=== PATIENT | male | born 1960 | race Caucasian/White ===

== ENCOUNTER 2019-10-13 05:42 | Day surgery (SDC) | payer OTHER ==
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
[~2019-10-13 05:42] MED LIST: Buffered Lidocaine 1% SYRIN* 1 ML/SYRINGE INTRADERM ONE
[2019-10-13] MEDS ORDERED: Dexamethasone IV* 4 MG/ML 1 ML (4 MG) IV SLOW PU ONE (06:00)
[2019-10-13] MEDS ORDERED: Famotidine IV* 10 MG/ML 2 ML (20 mg) IV ONE (06:00)
[2019-10-13] MEDS ORDERED: Lactated Ringers 1000 ML Bag* 1,000 ML IV SCH (06:00)
[2019-10-13] MEDS ORDERED: ceFAZolin 2 GM PREMIX in ORs 2 GM/50 ML BAG ONE (06:30)
[2019-10-13] MEDS ORDERED: Buffered Lidocaine 1% SYRIN* 1 ML/SYRINGE INTRADERM ONE (06:30)
[2019-10-13] MEDS ORDERED: Dexamethasone IV* 4 MG/ML 1 ML (4 MG) ONE (06:30)
[2019-10-13] MEDS ORDERED: Famotidine IV* 10 MG/ML 2 ML (20 mg) ONE (06:30)
[2019-10-13] MEDS ORDERED: fentaNYL* 50 MCG/ML 2 ML VIAL (100 MCG VIAL) ONE ×2 (07:03→10:02)
[2019-10-13] MEDS ORDERED: Midazolam* 1 MG/ML 5 ML VIAL (5 MG) ONE (07:03)
[2019-10-13] MEDS ORDERED: DiMENhydriNATE IV* 50 MG/ML VIAL IV PUSH PRN (07:11)
[2019-10-13] MEDS ORDERED: HYDROcodone/ACETAMIN 5-325 MG* 1 TAB PO PRN (07:11)
[2019-10-13] MEDS ORDERED: oxyCODONE/Acetamin 5/325 MG* TAB PO PRN (07:11)
[2019-10-13] MEDS ORDERED: fentaNYL* 50 MCG/ML 2 ML VIAL (100 MCG VIAL) IV PRN (07:11)
[2019-10-13] MEDS ORDERED: Naloxone* 0.4 MG/ML 1 ML VIAL IV PRN (07:11)
[2019-10-13] MEDS ORDERED: Bupivacaine 0.25% EPI 200,000* 30 ML SDV ONE (07:13)
[2019-10-13] MEDS ORDERED: Levalbuterol 0.63MG/3ML NEB* UNIT OF USE INH ONE ×2 (07:17→07:22)
[2019-10-13] MEDS ORDERED: Chloroprocaine 2%* 20 ML VIAL ONE (07:35)
[2019-10-13] MEDS ORDERED: Lidocaine 2% PF * 5 ML VIAL ONE (07:50)
[2019-10-13] MEDS ORDERED: Propofol* 10 MG/ML 20 ML BTL ONE (07:50)
[2019-10-13] MEDS ORDERED: Ketorolac INJ* 30 MG/ML 1 ML VIAL ONE (07:53)
[2019-10-13] MEDS ORDERED: hydrALAZINE IV* 20 MG/ML VIAL ONE (09:54)
[2019-10-13 10:21] VITALS: BP 155/99
--- NOTE | 2019-10-13 16:30 | OP ---
CC: Dr. Tobin, [facility] * DATE OF OPERATION: 10/13/19 - [facility] DATE OF : 60 SURGICAL CARE: Right knee. SURGEON: Micheal Haile MD NET WASHER: YOUSIF Stone, certified surgical tech/first assistant. ANESTHESIOLOGIST: Dr. Cal Kendall ANESTHESIA: Spinal with IV sedation. PRE-OP DIAGNOSIS: Right knee medial meniscal tear. POST-OP DIAGNOSES: Right knee medial meniscal tear, patellofemoral cartilage loss, chondromalacia. OPERATIVE PROCEDURE: Right knee partial medial meniscectomy and chondroplasty patellofemoral joint. COMPLICATIONS: There were no complications. DRAINS: There were no drains. TOURNIQUET: Tourniquet control was utilized on the right leg. CONDITION: Stable to recovery room. OPERATIVE INDICATIONS: Persistent knee pain especially medially with catching, MRI scan showing torn-up medial meniscus. DESCRIPTION OF PROCEDURE: The patient was brought to the operating room and placed on the operating room table in a supine position. Following the administration of spinal anesthetic done in the seated position, the patient was returned to the supine position. The right proximal thigh was wrapped with the tourniquet and the right leg was given a preliminary chlorhexidine prep and then a formal prep from the tourniquet to the foot. After prepping, draping, and sealing off, we did our universal protocol time-out confirming Enrico Gonzalez and a plan for right knee arthroscopic surgery, we all agreed and we proceeded. The knee had an effusion. The leg was exsanguinated with a Juanito tourniquet. Thigh tourniquet was elevated to 275. The knee was set up for arthroscopy with the arthroscope lateral to the patellar tendon. Probe and operating instruments medial to the patellar tendon and an in-flow catheter superomedial to the patella. The initial washout of the joint showed cartilaginous debris, one section was 1.5 cm in length x 2 to 3 mm in width and height and there was other debris within this as well and this all irrigated free quickly. The initial survey of the joint showed chondromalacia patella with fibrillations on the lateral facet of the patella. The trochlea had full- thickness cartilage loss over the area of 0.5 cm x 2 cm superior to inferior, slightly lateral and there was loose cartilage flap edges on this. There was a loose body in the intercondylar notch. The cruciate ligaments were in overall satisfactory condition. The lateral gutter was clear. The lateral femoral condyle, lateral meniscus, lateral tibial plateau in satisfactory condition. The medial femoral condyle had flaps of loose cartilage and the loose flaps were excised in the course of taking out the posterior horn of the medial meniscus. This was done with shaver and basket. The medial meniscus was torn in complex fashion mid to posterior from the level of the MCL posteriorly and the resection came somewhat anterior to medial meniscus. The resection was smooth on the anterior portion from the lateral portal. Great care was taken not to injure further the medial femoral condyle or to injure the medial tibial plateau during meniscectomy portion of the case. This was done with the knee on a valgus stress between 0 and 30 degrees of flexion with some external rotation of the foot. After the meniscectomy removal of loose bodies and the chondroplasty, then final photographs were obtained. The tourniquet was deflated. The knee was irrigated with another several liters of saline irrigation solution, then emptied, then instilled with Marcaine 0.25% with epinephrine 30 mL. The skin portals were closed with interrupted 3-0 Prolene and the knee was washed and dried, dressed with Betadine-soaked release, and then sterile gauze, sterile Webril, Cryo therapy cuff, and then ABD pads and a 6 inch Travis bandage loosely applied. The patient was returned to the recovery room in stable and satisfactory condition having tolerated the procedure very well. [id number]/[facility] #: [id number] JOANNE
== END 2019-10-13 10:36 | disposition home or self-care (01) ==
LOC: OR 05:42
PROVIDERS: ATTEND Orthopaedic Surgery
DX: S83.241A Other tear of medial meniscus, current injury, right knee, initial encounter (principal); M94.261 Chondromalacia, right knee; I10 Essential (primary) hypertension; Z87.891 Personal history of nicotine dependence; X58.XXXA Exposure to other specified factors, initial encounter; Y92.9 Unspecified place or not applicable
CPT/HCPCS: 88304; J0360; J0690; J1100; J1885; J2250; J2400; J2704; J3010

== ENCOUNTER 2023-08-26 09:26 | Inpatient (IN) ==
[2023-08-26 11:15] LABS: Hematocrit 35.7 % (38-53); Hemoglobin 11.6 g/dL (13.2-16.3); Mean Corpuscular Hemoglobin 27.6 pg (27-33); Mean Corpuscular Hgb Conc 32.5 g/dL (31-36); Mean Platelet Volume 8.9 fL (7.5-11.2); Platelet Count 188 10^3/uL (150-450); Red Blood Count 4.19 10^6/uL (4.06-5.63); Red Cell Distribution Width 16.4 % (12-17); White Blood Count 12.7 10^3/uL (3.6-10.2)
[2023-08-26 11:37] LABS: Albumin 3.3 g/dL (3.2-5.2); Albumin/Globulin Ratio 0.9 (1-3); Calcium 10.3 mg/dL (8.6-10.3); Creatinine, Serum 0.76 mg/dL (0.67-1.17); Globulin 3.7 g/dL (2-4); Potassium 4.5 mmol/L (3.5-5.0); Total Bilirubin 0.6 mg/dL (0.2-1.0)
[2023-08-26] MEDS ORDERED: Iohexol 350 (CONTRAST) 500 ML MDV IV ONE (12:14)
[2023-08-26] MEDS ORDERED: Vancomycin 1,000 MG in NS 0.9% 250 ml 250 ML IVPB ONE (14:45)
[2023-08-26] MEDS ORDERED: Albuterol/Ipratropium NEB.SOL (2.5/0.5 MG) 3 ML NEB.SOLN INH PRN (14:45)
[2023-08-26 14:59] LABS: C Reactive Protein 211.21 mg/L (<8.01)
[2023-08-26] MEDS ORDERED: Vancomycin per Pharmacy 1 EA NOTE FOLLOW UP SCH (15:00)
[2023-08-26] MEDS ORDERED: Vancomycin 1,500 MG in NS 0.9% 250 ml 250 ML IVPB ONE (15:00)
[2023-08-26] MEDS ORDERED: Senna TAB 8.6 mg TAB PO PRN (16:14)
[2023-08-26] MEDS ORDERED: Magnesium Hydroxide LIQ 30 ML UDC PO PRN (16:14)
[2023-08-26 16:30] LABS: RBC Morphology Normal (Normal)
[2023-08-26 16:31] LABS: ABS Basophils 0.1 10^3/uL (0.0-0.1); ABS Lymphocytes 1.2 10^3/uL (1.0-4.8); ABS Monocytes 1.4 10^3/uL (0.0-1.1); ABS Nucleated RBC 0.03 10^3/ul; Eosinophil % 0.2 %; Lymphocyte % 9.6 %; Nucleated Red Blood Cells % 0.2 %/100WBC (0.0-0.8)
[2023-08-26] MEDS ORDERED: Cefepime 2 GM in Dextrose 2 GM/50 ML BAG IV SCH (17:00)
[2023-08-26] MEDS: Lactated Ringers 1000 ml BAG 1,000 ML IV SCH (17:50)
[2023-08-26] MEDS: Enoxaparin 40 MG/0.4 ML SYR SUBCUT SCH (18:00)
[2023-08-26] MEDS: HYDROmorphone 1 MG/1 ML SYRINGE IV SLOW PU PRN (19:39)
[2023-08-26] MEDS: Magnesium Hydroxide LIQ 30 ML UDC PO SCH (20:57)
[2023-08-26] MEDS ORDERED: NS 0.9% 500 ml BAG 500 ML IV ONE (22:03)
[2023-08-26] MEDS: Morphine 2 MG/ML SYRINGE IV PRN (23:08)
[2023-08-27] MEDS: Lactated Ringers 1000 ml BAG 1,000 ML IV SCH (02:24)
[2023-08-27] MEDS: HYDROmorphone 1 MG/1 ML SYRINGE IV SLOW PU PRN ×3 (02:56→16:15)
[2023-08-27] MEDS: Cefepime 2 GM in Dextrose 2 GM/50 ML BAG IV SCH ×2 (04:34→16:09)
[2023-08-27] MEDS: Vancomycin 1,500 MG in NS 0.9% 250 ml 250 ML IVPB SCH ×2 (05:29→17:58)
[2023-08-27 05:59] LABS: Hematocrit 32.7 % (38-53); Hemoglobin 10.6 g/dL (13.2-16.3); Mean Corpuscular Hemoglobin 27.5 pg (27-33); Mean Corpuscular Hgb Conc 32.3 g/dL (31-36); Mean Platelet Volume 9.1 fL (7.5-11.2); Platelet Count 148 10^3/uL (150-450); Red Blood Count 3.85 10^6/uL (4.06-5.63); Red Cell Distribution Width 16.1 % (12-17); White Blood Count 11.5 10^3/uL (3.6-10.2)
[2023-08-27 06:25] LABS: Albumin 2.9 g/dL (3.2-5.2); Albumin/Globulin Ratio 0.9 (1-3); Calcium 9.6 mg/dL (8.6-10.3); Creatinine, Serum 0.54 mg/dL (0.67-1.17); Globulin 3.2 g/dL (2-4); Magnesium 1.9 mg/dL (1.9-2.7); Potassium 4.5 mmol/L (3.5-5.0); Total Bilirubin 0.6 mg/dL (0.2-1.0); Total Protein 6.1 g/dL (6.4-8.9)
[2023-08-27] MEDS: Magnesium Hydroxide LIQ 30 ML UDC PO SCH (07:31)
[2023-08-27] MEDS: Morphine 2 MG/ML SYRINGE IV PRN ×3 (07:31→22:05)
[2023-08-27] MEDS ORDERED: Sulfur Hexaflouride MICROSPHR 25 MG VIAL ONE (07:56)
[2023-08-27 09:12] LABS: ABS Basophils 0.1 10^3/uL (0.0-0.1); ABS Monocytes 1.1 10^3/uL (0.0-1.1); ABS Neutrophils 9.4 10^3/uL (1.5-7.6); ABS Nucleated RBC 0.01 10^3/ul; Eosinophil % 0.2 %; Lymphocyte % 8.6 %; Nucleated Red Blood Cells % 0.1 %/100WBC (0.0-0.8); RBC Morphology Normal (Normal)
[2023-08-27] MEDS: NS 0.9% 1000 ml BAG 1,000 ML IV SCH (13:24)
[2023-08-27 14:42] LABS: Uric Acid 4.1 mg/dL (4.4-7.6)
[2023-08-27] MEDS ORDERED: Ondansetron 4 mg VIAL 2 MG/ML 2 ml VIAL IV PRN (14:54)
[2023-08-27] MEDS: Enoxaparin 40 MG/0.4 ML SYR SUBCUT SCH (16:09)
[2023-08-28] MEDS: NS 0.9% 1000 ml BAG 1,000 ML IV SCH ×2 (00:46→17:03)
[2023-08-28] MEDS: HYDROmorphone 1 MG/1 ML SYRINGE IV SLOW PU PRN ×3 (02:02→12:44)
[2023-08-28] MEDS: Cefepime 2 GM in Dextrose 2 GM/50 ML BAG IV SCH ×2 (05:11→17:03)
[2023-08-28] MEDS ORDERED: Vancomycin Trough Check NOTE FOLLOW UP ONE (05:30)
[2023-08-28 05:46] LABS: Hematocrit 30.8 % (38-53); Hemoglobin 10.3 g/dL (13.2-16.3); Mean Corpuscular Hemoglobin 28.2 pg (27-33); Mean Corpuscular Hgb Conc 33.4 g/dL (31-36); Mean Corpuscular Volume 84.4 fL (80-97); Mean Platelet Volume 9.3 fL (7.5-11.2); Platelet Count 119 10^3/uL (150-450); Red Blood Count 3.65 10^6/uL (4.06-5.63); Red Cell Distribution Width 16.3 % (12-17); White Blood Count 10.3 10^3/uL (3.6-10.2)
[2023-08-28 06:03] LABS: Calcium 9.2 mg/dL (8.6-10.3); Creatinine, Serum 0.48 mg/dL (0.67-1.17)
[2023-08-28 06:29] LABS: ABS Basophils 0.1 10^3/uL (0.0-0.1); ABS Lymphocytes 0.9 10^3/uL (1.0-4.8); ABS Monocytes 0.8 10^3/uL (0.0-1.1); ABS Neutrophils 8.6 10^3/uL (1.5-7.6); ABS Nucleated RBC 0.02 10^3/ul; Eosinophil % 0.1 %; Lymphocyte % 8.4 %; Nucleated Red Blood Cells % 0.1 %/100WBC (0.0-0.8)
[2023-08-28] MEDS: Vancomycin 1,500 MG in NS 0.9% 250 ml 250 ML IVPB SCH (06:49)
[2023-08-28] MEDS: Morphine 2 MG/ML SYRINGE IV PRN (06:52)
[2023-08-28] MEDS ORDERED: NS 0.9% 500 ml BAG 500 ML IV ONE (07:29)
[2023-08-28] MEDS ORDERED: Morphine 2 MG/ML SYRINGE IV PRN (07:31)
[2023-08-28] MEDS ORDERED: Albuterol/Ipratropium NEB.SOL (2.5/0.5 MG) 3 ML NEB.SOLN INH ONE (08:02)
[2023-08-28] MEDS ORDERED: PALONOSETRON HCL 0.05 MG/ML (0.25 MG) SYRINGE (0.05 MG/ML) IV ONE (09:30)
[2023-08-28] MEDS ORDERED: Dexamethasone IV 4 MG/ML VIAL 1 ml VIAL IV SLOW PU SCH (09:30)
[2023-08-28] MEDS ORDERED: APREPITANT 130 MG in Premix IV 0 ML IV ONE (09:30)
[2023-08-28] MEDS ORDERED: ETOPOSIDE IVPB SCH (10:00)
[2023-08-28] MEDS ORDERED: NS 0.9% IVPB SCH (10:00)
[2023-08-28] MEDS ORDERED: Lorazepam PYXIS KEY PRN (10:58)
[2023-08-28] MEDS ORDERED: LORazepam 2 mg VIAL 1 ml IV PUSH PRN (10:58)
[2023-08-28] MEDS: Dexamethasone IV 4 MG/ML 5 ML VIAL (20 MG) IVPB SCH (12:17)
[2023-08-28] MEDS: NS 0.9% IVPB ONE ×2 (12:29→13:32)
[2023-08-28] MEDS: CARBOPLATIN IVPB ONE ×2 (12:29→13:32)
[2023-08-28] MEDS: ETOPOSIDE IVPB SCH (12:29)
[2023-08-28] MEDS: NS 0.9% IVPB SCH (12:29)
[2023-08-28] MEDS ORDERED: Prochlorperazine 5 mg/ml 2 ml VIAL (10 mg) IV PRN (14:52)
[2023-08-28] MEDS: Enoxaparin 40 MG/0.4 ML SYR SUBCUT SCH (17:02)
[2023-08-29] MEDS: Cefepime 2 GM in Dextrose 2 GM/50 ML BAG IV SCH ×2 (04:59→16:27)
[2023-08-29 05:46] LABS: Hematocrit 31.5 % (38-53); Hemoglobin 10.4 g/dL (13.2-16.3); Mean Corpuscular Hemoglobin 28.1 pg (27-33); Mean Corpuscular Hgb Conc 33.2 g/dL (31-36); Mean Corpuscular Volume 84.8 fL (80-97); Red Blood Count 3.71 10^6/uL (4.06-5.63); White Blood Count 9.9 10^3/uL (3.6-10.2)
[2023-08-29 05:59] LABS: Calcium 9.6 mg/dL (8.6-10.3); Creatinine, Serum 0.39 mg/dL (0.67-1.17); Potassium 4.2 mmol/L (3.5-5.0); Uric Acid 2.9 mg/dL (4.4-7.6); eGFR CKD-EPI 123.5 (>60)
[2023-08-29] MEDS: NS 0.9% 1000 ml BAG 1,000 ML IV SCH ×3 (06:02→23:03)
[2023-08-29 07:28] LABS: ABS Lymphocytes 0.5 10^3/uL (1.0-4.8); ABS Monocytes 0.6 10^3/uL (0.0-1.1); ABS Neutrophils 8.8 10^3/uL (1.5-7.6); ABS Nucleated RBC 0.01 10^3/ul; Lymphocyte % 5.3 %; Mean Platelet Volume 9.8 fL (7.5-11.2); Nucleated Red Blood Cells % 0.1 %/100WBC (0.0-0.8); Platelet Count 91 10^3/uL (150-450)
[2023-08-29] MEDS ORDERED: Morphine 2 MG/ML SYRINGE IV ONE (08:31)
[2023-08-29] MEDS ORDERED: Naloxone Nasal Spray 4 MG/0.1 ML NASAL.SPR INTRANASAL PRN (08:32)
[2023-08-29] MEDS ORDERED: Morphine 2 MG/ML SYRINGE IV PRN (08:32)
[2023-08-29] MEDS ORDERED: Acetaminophen IV 1 GM/100ML 1,000 MG/100 ML BAG IV PRN (08:33)
[2023-08-29] MEDS: HYDROmorphone 1 MG/1 ML SYRINGE IV SLOW PU PRN ×3 (11:04→21:40)
[2023-08-29] MEDS: Albuterol/Ipratropium NEB.SOL (2.5/0.5 MG) 3 ML NEB.SOLN INH SCH ×4 (11:10→23:17)
[2023-08-29] MEDS: Dexamethasone IV 4 MG/ML VIAL 1 ml VIAL IV SLOW PU SCH (13:02)
[2023-08-29] MEDS: Dexamethasone IV 4 MG/ML 5 ML VIAL (20 MG) IVPB SCH (13:21)
[2023-08-29] MEDS ORDERED: NS 0.9% 500 ml BAG 500 ML IV ONE (13:29)
[2023-08-29] MEDS: NS 0.9% IVPB SCH (13:42)
[2023-08-29] MEDS: ETOPOSIDE IVPB SCH (13:42)
[2023-08-29] MEDS: Enoxaparin 40 MG/0.4 ML SYR SUBCUT SCH (16:17)
[2023-08-30] MEDS: Albuterol/Ipratropium NEB.SOL (2.5/0.5 MG) 3 ML NEB.SOLN INH SCH ×4 (03:37→19:10)
[2023-08-30] MEDS: HYDROmorphone 1 MG/1 ML SYRINGE IV SLOW PU PRN ×3 (04:24→22:27)
[2023-08-30] MEDS: Cefepime 2 GM in Dextrose 2 GM/50 ML BAG IV SCH ×2 (04:43→17:01)
[2023-08-30 06:10] LABS: Hematocrit 28.2 % (38-53); Hemoglobin 9.2 g/dL (13.2-16.3); Mean Corpuscular Hemoglobin 28.1 pg (27-33); Mean Corpuscular Hgb Conc 32.6 g/dL (31-36); Mean Corpuscular Volume 86.2 fL (80-97); Platelet Count 84 10^3/uL (150-450); Red Blood Count 3.27 10^6/uL (4.06-5.63); Red Cell Distribution Width 16.1 % (12-17)
[2023-08-30 06:11] LABS: Calcium 8.8 mg/dL (8.6-10.3); Creatinine, Serum 0.49 mg/dL (0.67-1.17); Potassium 4.3 mmol/L (3.5-5.0); Uric Acid 2.8 mg/dL (4.4-7.6); eGFR CKD-EPI 115.3 (>60)
[2023-08-30] MEDS: NS 0.9% 1000 ml BAG 1,000 ML IV SCH (07:18)
[2023-08-30 07:57] LABS: Phosphorus 3.3 mg/dL (2.5-5.0)
[2023-08-30 08:23] LABS: ABS Lymphocytes 0.5 10^3/uL (1.0-4.8); ABS Monocytes 0.3 10^3/uL (0.0-1.1); ABS Neutrophils 11.2 10^3/uL (1.5-7.6); ABS Nucleated RBC 0.01 10^3/ul; Lymphocyte % 4.1 %; Nucleated Red Blood Cells % 0.1 %/100WBC (0.0-0.8)
[2023-08-30] MEDS ORDERED: HYDROmorphone 1 MG/1 ML SYRINGE IV SLOW PU PRN (08:59)
[2023-08-30] MEDS: Dexamethasone IV 4 MG/ML VIAL 1 ml VIAL IV SLOW PU SCH (12:33)
[2023-08-30] MEDS: NS 0.9% IVPB SCH (12:58)
[2023-08-30] MEDS: ETOPOSIDE IVPB SCH (12:58)
[2023-08-30] MEDS: Enoxaparin 40 MG/0.4 ML SYR SUBCUT SCH (17:05)
[2023-08-30] MEDS: CMCS:FLUTICAS/UMECLI/VILANT 100-62.5-25 MDI (NF) INH SCH (18:04)
[2023-08-30] MEDS ORDERED: Iodixanol (CONTRAST) 320 MG/ML 100 ML SDV IV ONE (21:21)
[2023-08-31] MEDS: HYDROmorphone 1 MG/1 ML SYRINGE IV SLOW PU PRN ×5 (03:10→18:56)
[2023-08-31] MEDS: Albuterol/Ipratropium NEB.SOL (2.5/0.5 MG) 3 ML NEB.SOLN INH SCH ×4 (03:12→19:07)
[2023-08-31] MEDS: Cefepime 2 GM in Dextrose 2 GM/50 ML BAG IV SCH ×2 (04:56→16:53)
[2023-08-31 06:16] LABS: Calcium 9.4 mg/dL (8.6-10.3); Creatinine, Serum 0.46 mg/dL (0.67-1.17); Potassium 4.4 mmol/L (3.5-5.0); eGFR CKD-EPI 117.5 (>60)
[2023-08-31 06:20] LABS: Phosphorus 3.3 mg/dL (2.5-5.0)
[2023-08-31 06:35] LABS: Uric Acid 2.9 mg/dL (4.4-7.6)
[2023-08-31 06:37] LABS: Hematocrit 28.5 % (38-53); Hemoglobin 9.4 g/dL (13.2-16.3); Mean Corpuscular Hemoglobin 28.4 pg (27-33); Mean Corpuscular Hgb Conc 33.2 g/dL (31-36); Mean Corpuscular Volume 85.6 fL (80-97); Mean Platelet Volume 10.2 fL (7.5-11.2); Platelet Count 71 10^3/uL (150-450); Red Blood Count 3.33 10^6/uL (4.06-5.63); Red Cell Distribution Width 16.3 % (12-17); White Blood Count 9.4 10^3/uL (3.6-10.2)
[2023-08-31 06:39] LABS: ABS Lymphocytes 0.5 10^3/uL (1.0-4.8); ABS Monocytes 0.2 10^3/uL (0.0-1.1); ABS Neutrophils 8.7 10^3/uL (1.5-7.6); ABS Nucleated RBC 0.01 10^3/ul; Lymphocyte % 4.8 %; Nucleated Red Blood Cells % 0.1 %/100WBC (0.0-0.8); RBC Morphology Normal (Normal)
[2023-08-31] MEDS: CMCS:FLUTICAS/UMECLI/VILANT 100-62.5-25 MDI (NF) INH SCH (07:17)
[2023-08-31 15:39] LABS: Albumin/Globulin Ratio 1.1 (1-3); Direct Bilirubin 0.1 mg/dL (0.03-0.18); Globulin 2.8 g/dL (2-4); Indirect Bilirubin 0.4 mg/dL (0.3-1.0); Total Bilirubin 0.5 mg/dL (0.2-1.0); Total Protein 5.8 g/dL (6.4-8.9)
[2023-08-31] MEDS: Enoxaparin 40 MG/0.4 ML SYR SUBCUT SCH (16:53)
[2023-09-01] MEDS: Albuterol/Ipratropium NEB.SOL (2.5/0.5 MG) 3 ML NEB.SOLN INH SCH ×2 (01:07→08:11)
[2023-09-01] MEDS: HYDROmorphone 1 MG/1 ML SYRINGE IV SLOW PU PRN ×3 (01:08→17:00)
[2023-09-01] MEDS: Cefepime 2 GM in Dextrose 2 GM/50 ML BAG IV SCH ×2 (04:49→16:06)
[2023-09-01 06:32] LABS: ABS Lymphocytes 0.8 10^3/uL (1.0-4.8); ABS Monocytes 0.3 10^3/uL (0.0-1.1); ABS Neutrophils 16.7 10^3/uL (1.5-7.6); ABS Nucleated RBC 0.04 10^3/ul; Hematocrit 26.9 % (38-53); Hemoglobin 8.9 g/dL (13.2-16.3); Lymphocyte % 4.3 %; Mean Corpuscular Hgb Conc 33.1 g/dL (31-36); Mean Corpuscular Volume 84.6 fL (80-97); Mean Platelet Volume 9.7 fL (7.5-11.2); Nucleated Red Blood Cells % 0.2 %/100WBC (0.0-0.8); Platelet Count 69 10^3/uL (150-450); Red Blood Count 3.18 10^6/uL (4.06-5.63); Red Cell Distribution Width 16.5 % (12-17); White Blood Count 17.8 10^3/uL (3.6-10.2)
[2023-09-01] MEDS: CMCS:FLUTICAS/UMECLI/VILANT 100-62.5-25 MDI (NF) INH SCH (08:08)
[2023-09-01] MEDS ORDERED: Albuterol/Ipratropium NEB.SOL (2.5/0.5 MG) 3 ML NEB.SOLN INH PRN (08:14)
[2023-09-01] MEDS: oxyCODONE SR 10 mg TAB PO SCH ×2 (11:23→20:52)
[2023-09-01] MEDS: Enoxaparin 40 MG/0.4 ML SYR SUBCUT SCH (16:06)
[2023-09-02] MEDS: HYDROmorphone 1 MG/1 ML SYRINGE IV SLOW PU PRN ×2 (01:53→07:24)
[2023-09-02] MEDS: Cefepime 2 GM in Dextrose 2 GM/50 ML BAG IV SCH (05:26)
[2023-09-02 06:02] LABS: Hematocrit 26.6 % (38-53); Hemoglobin 8.7 g/dL (13.2-16.3); Mean Corpuscular Hemoglobin 27.5 pg (27-33); Mean Corpuscular Hgb Conc 32.7 g/dL (31-36); Mean Corpuscular Volume 84.3 fL (80-97); Mean Platelet Volume 9.4 fL (7.5-11.2); Platelet Count 56 10^3/uL (150-450); Red Blood Count 3.16 10^6/uL (4.06-5.63); Red Cell Distribution Width 16.8 % (12-17); White Blood Count 15.2 10^3/uL (3.6-10.2)
[2023-09-02 06:34] LABS: Calcium 9.6 mg/dL (8.6-10.3); Creatinine, Serum 0.42 mg/dL (0.67-1.17); Magnesium 1.7 mg/dL (1.9-2.7); Potassium 4.1 mmol/L (3.5-5.0); eGFR CKD-EPI 120.8 (>60)
[2023-09-02] MEDS: CMCS:FLUTICAS/UMECLI/VILANT 100-62.5-25 MDI (NF) INH SCH (07:59)
[2023-09-02] MEDS ORDERED: Magnesium Sulfate 2 gm BAG 2 GM/50 ML BAG IVPB ONE (08:08)
[2023-09-02] MEDS ORDERED: Magnesium Sulfate IV 1GM/100ML 1 GM/100 ML BAG IV ONE (10:09)
[2023-09-02] MEDS: oxyCODONE SR 10 mg TAB PO SCH (10:40)
[2023-09-02 14:00] VITALS: BP 118/82
[2023-09-02] MEDS ORDERED: oxyCODONE SR 20 mg TAB PO SCH (21:00)
[2023-09-03] MEDS ORDERED: Aspirin EC 81 mg TAB.EC (enteric coated) PO SCH (09:00)
[2023-09-03] MEDS ORDERED: DILTIAZEM HCL 300 MG PO SCH (21:00)
== END 2023-09-02 15:35 | disposition home or self-care (01) | DRG 871 ==
LOC: EDHOLD 09:26 → ED 09:26 → MED 19:56 → SUATTDRO 08-27 13:27
PROVIDERS: ADMIT Hospitalist; ATTEND Internal Medicine

== ENCOUNTER 2023-09-18 16:13 | Observation (INO) ==
[2023-09-18 17:12] LABS: Hematocrit 22.6 % (38-53); Hemoglobin 7.2 g/dL (13.2-16.3); Mean Corpuscular Hemoglobin 26.6 pg (27-33); Mean Corpuscular Volume 83.1 fL (80-97); Mean Platelet Volume 8.4 fL (7.5-11.2); Platelet Count 294 10^3/uL (150-450); Red Blood Count 2.72 10^6/uL (4.06-5.63); Red Cell Distribution Width 18.5 % (12-17); White Blood Count 23.4 10^3/uL (3.6-10.2)
[2023-09-18 17:32] LABS: Albumin 3.4 g/dL (3.2-5.2); Albumin/Globulin Ratio 1.1 (1-3); Calcium 9.8 mg/dL (8.6-10.3); Creatinine, Serum 0.69 mg/dL (0.67-1.17); Globulin 3.2 g/dL (2-4); Magnesium 1.7 mg/dL (1.9-2.7); Phosphorus 4.4 mg/dL (2.5-5.0); Potassium 4.5 mmol/L (3.5-5.0); Total Bilirubin 0.6 mg/dL (0.2-1.0); Total Protein 6.6 g/dL (6.4-8.9)
[2023-09-18 17:42] LABS: ABS Basophils 0.1 10^3/uL (0.0-0.1); ABS Lymphocytes 2.1 10^3/uL (1.0-4.8); ABS Monocytes 1.5 10^3/uL (0.0-1.1); ABS Neutrophils 19.6 10^3/uL (1.5-7.6); ABS Nucleated RBC 0.13 10^3/ul; Eosinophil % 0.1 %; Lymphocyte % 9.2 %; Nucleated Red Blood Cells % 0.6 %/100WBC (0.0-0.8); Polychromasia 1+
[2023-09-18 18:07] LABS: PCO2 Arterial 49 mmHg (35-45); PO2 Arterial 103 mmHg (80-100)
[2023-09-18] MEDS ORDERED: Iohexol 350 (CONTRAST) 500 ML MDV IV ONE (18:30)
[2023-09-18 18:42] LABS: High Sensitivity Troponin 1 Hr 13 pg/mL (<20)
[2023-09-18] MEDS ORDERED: Piperacillin/Tazobac 3.375 BAG 3.375 GM/100 ML BAG IV ONE (20:28)
[2023-09-18 20:36] LABS: High Sensitivity Troponin 3 Hr 7 pg/mL (<20)
[2023-09-18] MEDS ORDERED: HYDROmorphone 1 MG/1 ML SYRINGE IV ONE (21:03)
[2023-09-18 22:09] LABS: Urine Appearance Clear; Urine Bilirubin Negative (Negative); Urine Blood Negative (Negative); Urine Color Yellow; Urine Glucose Negative (Negative); Urine Ketones Negative (Negative); Urine Nitrite Negative (Negative); Urine Protein Negative (Negative); Urine Specific Gravity 1.059 (1.002-1.030); Urine Urobilinogen Negative (Negative)
[2023-09-18] MEDS ORDERED: Enoxaparin 40 MG/0.4 ML SYR SUBCUT SCH (23:00)
[2023-09-19] MEDS ORDERED: Furosemide 20 mg/2 ml IV VIAL IV ONE (00:19)
[2023-09-19] MEDS ORDERED: Magnesium Sulfate 2 gm BAG 2 GM/50 ML BAG IVPB ONE (00:47)
[2023-09-19] MEDS ORDERED: Dextrose 50% Syringe 50 ml 25 GM/50 ML SYRINGE IV PUSH PRN (00:48)
[2023-09-19] MEDS ORDERED: Albuterol HFA INHALER 8 gm MDI INH PRN (01:31)
[2023-09-19] MEDS ORDERED: Senna TAB 8.6 mg TAB PO PRN (01:31)
[2023-09-19] MEDS ORDERED: DILTIAZEM HCL 300 MG PO SCH (01:45)
[2023-09-19] MEDS ORDERED: cefTRIAXone 1 gm/50 mL D5W 1 GM/50 ML BAG IV SCH (01:45)
[2023-09-19] MEDS ORDERED: Enoxaparin 40 MG/0.4 ML SYR SUBCUT SCH ×2 (02:00→22:00)
[2023-09-19] MEDS ORDERED: Azithromycin 500 mg/250 ml NS 500 MG/250 ML BAG IVPB SCH (02:00)
[2023-09-19 05:42] LABS: Hematocrit 20.1 % (38-53); Hemoglobin 6.8 g/dL (13.2-16.3); Mean Corpuscular Hemoglobin 27.3 pg (27-33); Mean Corpuscular Hgb Conc 33.5 g/dL (31-36); Mean Corpuscular Volume 81.3 fL (80-97); Platelet Count 187 10^3/uL (150-450); Red Blood Count 2.48 10^6/uL (4.06-5.63); Red Cell Distribution Width 18.6 % (12-17); White Blood Count 15.3 10^3/uL (3.6-10.2)
[2023-09-19 05:57] LABS: Calcium 9.5 mg/dL (8.6-10.3); Creatinine, Serum 0.64 mg/dL (0.67-1.17); Magnesium 2.2 mg/dL (1.9-2.7); Potassium 4.5 mmol/L (3.5-5.0); eGFR CKD-EPI 106.4 (>60)
[2023-09-19 06:16] LABS: ABS Basophils 0.1 10^3/uL (0.0-0.1); ABS Lymphocytes 0.9 10^3/uL (1.0-4.8); ABS Neutrophils 13.3 10^3/uL (1.5-7.6); ABS Nucleated RBC 0.08 10^3/ul; Eosinophil % 0.1 %; Lymphocyte % 6.1 %; Nucleated Red Blood Cells % 0.5 %/100WBC (0.0-0.8)
[2023-09-19] MEDS ORDERED: oxyCODONE SR 20 mg TAB PO SCH (09:00)
[2023-09-19] MEDS ORDERED: Aspirin EC 81 mg TAB.EC (enteric coated) PO SCH (09:00)
[2023-09-19] MEDS ORDERED: FLUTICAS/UMECLI/VILANT 100-62.5-25 MDI (NF) INH SCH (09:00)
[2023-09-19] MEDS ORDERED: Morphine ORAL CONCENTRATE 5 MG/0.25 ML ORAL.SYRIN SL PRN (09:10)
[2023-09-19] MEDS ORDERED: guaiFENesin 100 mg/5 ml LIQ unit dose cup PO PRN (09:13)
[2023-09-19 15:12] VITALS: BP 131/94
== END 2023-09-19 15:10 | disposition home or self-care (01) ==
LOC: EDHOLD 16:13 → ED 16:13 → SUATTDRO 22:30 → MED 09-19 10:08 → EDHOLD 09-19 10:23
PROVIDERS: ADMIT Internal Medicine; ATTEND Hospitalist